=== PATIENT | female | born 1970 | race Caucasian/White ===

== ENCOUNTER 2018-02-16 11:20 | Emergency (ER) | payer MEDICAID ==
[~2018-02-16] VITALS: Ht 160 cm; Wt 74.8 kg
[2018-02-16 11:26] VITALS: BP_SYST 156
== END 2018-02-16 12:23 | disposition home or self-care (01) ==
LOC: SED 11:20
DX: S01.01XD Laceration without foreign body of scalp, subsequent encounter (principal); R03.0 Elevated blood-pressure reading, without diagnosis of hypertension; Z88.0 Allergy status to penicillin; W10.8XXD Fall (on) (from) other stairs and steps, subsequent encounter
CPT/HCPCS: 99281

== ENCOUNTER 2018-11-26 15:27 | Emergency (ER) | payer MEDICAID ==
[~2018-11-26] VITALS: Ht 162.6 cm; Wt 86.2 kg
[2018-11-26 15:34] VITALS: BP_SYST 150
--- NOTE | 2018-11-26 15:37 | NUR ---
Patient to ER bed 06 to gown for evaluation. Side rails up. Report given to VIOLETTE MARIE.
--- NOTE | 2018-11-26 15:45 | NUR ---
Patient awake, alert, oriented x 4. Patient complaining of abscess on back. Patient reports 10/10 radiating pain upon palpation. Patient reports pain radiating to both shoulders. Patient denies any other complaints of pain. No signs or symptoms of distress noted.
--- NOTE | 2018-11-26 17:30 | NUR ---
NADEEM Ariza at bedside examining patient.
[2018-11-26] MEDS: SULFAMETHOXAZOLE/TRIMETHOPR DS 1 TABLET PO ONE (17:42)
[2018-11-26] MEDS: CLINDAMYCIN HCL 150 MG CAPSULE PO ONE (17:42)
--- NOTE | 2018-11-26 17:53 | NUR ---
Patient stepped out to get something from her car.
[2018-11-26 18:12] VITALS: BP_SYST 141
--- NOTE | 2018-11-26 18:12 | NUR ---
Patient given written and verbal discharge instructions and verbalizes understanding. ER MD discussed with patient the results and treatment provided. Patient in stable condition. ID arm band removed. Rx of Naprosyn, Bactrim given. Patient educated on pain management and to follow up with PMD. Pain Scale 0. Opportunity for questions provided and answered. Medication side effect fact sheet provided.
== END 2018-11-26 18:12 | disposition home or self-care (01) ==
LOC: SED 15:27
DX: L72.3 Sebaceous cyst (principal); Z88.0 Allergy status to penicillin
CPT/HCPCS: 99283

== ENCOUNTER 2019-01-04 09:05 | Emergency (ER) | payer MEDICAID ==
[~2019-01-04] VITALS: Ht 162.6 cm; Wt 90.7 kg
[2019-01-04 09:14] VITALS: BP_SYST 151
[2019-01-04 10:20] VITALS: BP_SYST 151
== END 2019-01-04 10:20 | disposition home or self-care (01) ==
LOC: SED 09:05
DX: J06.9 Acute upper respiratory infection, unspecified (principal); B09 Unspecified viral infection characterized by skin and mucous membrane lesions; R21 Rash and other nonspecific skin eruption; Z88.0 Allergy status to penicillin
CPT/HCPCS: 71046-TC; 99283